=== PATIENT | male | born 1975 | race African-American/Black ===

== ENCOUNTER 2020-05-16 05:23 | Inpatient (IN) | payer MEDICARE, OTHER ==
[2020-05-16] VITALS (7 sets, daily range): BP systolic 157–199; BP diastolic 82–110
[~2020-05-16] VITALS: Ht 175.3 cm; Wt 67.6 kg
[2020-05-16 05:54] LABS: BASO # 0.1 x10^3/uL (0.0-0.2); BASO % 1 % (0-3); EOS # 0.1 x10^3/uL (0.0-0.7); EOS % 1 % (0-3); HEMATOCRIT 26.9 % (39.0-53.0); LYMPH # 0.9 x10^3/uL (1.0-4.8); LYMPH % 10 % (24-48); MEAN CORPUSCULAR HEMOGLOBIN 28 pg (25-35); MEAN CORPUSCULAR HGB CONC 34 g/dL (31-37); MEAN CORPUSCULAR VOLUME 83 fL (79-100); MONO # 0.7 x10^3/uL (0.0-1.1); MONO % 8 % (0-9); NEUT % 80 % (31-73); PLATELET COUNT 220 x10^3/uL (140-400); RED BLOOD COUNT 3.23 x10^6/uL (4.30-5.70); RED CELL DISTRIBUTION WIDTH 18.3 % (11.5-14.5); WHITE BLOOD COUNT 8.7 x10^3/uL (4.0-11.0)
--- NOTE | 2020-05-16 05:55 | PHYS DOC ---
Past Medical History Past Medical History: CHF, Renal Failure (MOHSEN DAO DO) Past Medical History: Renal Failure (GREG MARQUEZ MD) Past Surgical History Dialysis fistula (MOHSEN DAO DO) Smoking Status: Current Every Day Smoker (MOHSEN DAO DO) Drug Use: None (GREG MARQUEZ MD) General Adult EDM: Chief Complaint: SHORTNESS OF BREATH HPI: HPI: Patient is a 45-year-old male with end-stage renal disease on dialysis who has a Friday schedule. He states he missed his Friday dialysis because he did not have a ride. He has been progressively more short of breath with dyspnea on exertion since that time. He denies any fever chills or sweats. Has had no cough or congestion. He does describe orthopnea. He states he has had to be hospitalized for emergent dialysis in the past. He denies any chest pain. Patient had a negative COVID test several days ago [] (MOHSEN DAO DO) Review of Systems: Review of Systems: Constitutional: Denies fever or chills. [] Eyes: Denies change in visual acuity. [] HENT: Denies nasal congestion or sore throat. [] Respiratory: Denies cough or shortness of breath. [] Cardiovascular: Denies chest pain or edema. [] GI: Denies abdominal pain, nausea, vomiting, bloody stools or diarrhea. [] : Denies dysuria. [] Musculoskeletal: Denies back pain or joint pain. [] Integument: Denies rash. [] Neurologic: Denies headache, focal weakness or sensory changes. [] Endocrine: Denies polyuria or polydipsia. [] Lymphatic: Denies swollen glands. [] Psychiatric: Reports depression [] (MOHSEN DAO DO) Heart Score: Risk Factors: Risk Factors: DM, Current or recent (<one month) smoker, HTN, HLP, family history of CAD, obesity. Risk Scores: Score 0 - 3: 2.5% MACE over next 6 weeks - Discharge Home Score 4 - 6: 20.3% MACE over next 6 weeks - Admit for Clinical Observation Score 7 - 10: 72.7% MACE over next 6 weeks - Early Invasive Strategies (MOHSEN DAO DO) Allergies: Allergies: Allergies Coded Allergies Type Severity Reaction Last Updated Verified oxycodone Allergy Mild Itching 05/16/20 Yes (MOHSEN DAO DO) Physical Exam: PE: Constitutional: Well developed, well nourished, no acute distress, non-toxic appearance. [] HENT: Normocephalic, atraumatic, bilateral external ears normal, oropharynx moist, no oral exudates, nose normal. [] Eyes: PERRLA, EOMI, conjunctiva normal, no discharge. [] Neck: Normal range of motion, no tenderness, supple, no stridor. [] Cardiovascular:Heart rate regular rhythm, no murmur [] Lungs & Thorax: Bilateral breath sounds clear to auscultation [] Abdomen: Bowel sounds normal, soft, no tenderness, no masses, no pulsatile masses. [] Skin: Warm, dry, no erythema, no rash. [] Back: No tenderness, no CVA tenderness. [] Extremities: No tenderness, no cyanosis, no clubbing, ROM intact, no edema. [] Neurologic: Alert and oriented X 3, normal motor function, normal sensory function, no focal deficits noted. [] Psychologic: Affect normal, judgement normal, mood normal. [] (MOHSEN DAO DO) Current Patient Data: Labs: Laboratory Tests Test 05/16/20 05:42 White Blood Count 8.7 x10^3/uL Red Blood Count 3.23 x10^6/uL Hemoglobin 9.0 g/dL Hematocrit 26.9 % Mean Corpuscular Volume 83 fL Mean Corpuscular Hemoglobin 28 pg Mean Corpuscular Hemoglobin Concent 34 g/dL Red Cell Distribution Width 18.3 % Platelet Count 220 x10^3/uL Neutrophils (%) (Auto) 80 % Lymphocytes (%) (Auto) 10 % Monocytes (%) (Auto) 8 % Eosinophils (%) (Auto) 1 % Basophils (%) (Auto) 1 % Neutrophils # (Auto) 7.0 x10^3/uL Lymphocytes # (Auto) 0.9 x10^3/uL Monocytes # (Auto) 0.7 x10^3/uL Eosinophils # (Auto) 0.1 x10^3/uL Basophils # (Auto) 0.1 x10^3/uL Sodium Level 135 mmol/L Potassium Level 6.2 mmol/L Chloride Level 93 mmol/L Carbon Dioxide Level 29 mmol/L Anion Gap 13 Blood Urea Nitrogen 75 mg/dL Creatinine 16.7 mg/dL Estimated GFR (Cockcroft-Gault) 3.8 BUN/Creatinine Ratio 4 Glucose Level 138 mg/dL Calcium Level 8.5 mg/dL Magnesium Level 3.0 mg/dL Total Bilirubin 0.4 mg/dL Aspartate Amino Transf (AST/SGOT) 30 U/L Alanine Aminotransferase (ALT/SGPT) 27 U/L Alkaline Phosphatase 121 U/L Total Protein 7.9 g/dL Albumin 3.5 g/dL Albumin/Globulin Ratio 0.8 Vital Signs: Vital Signs Date Time Temp Pulse Resp B/P (MAP) Pulse Ox O2 Delivery O2 Flow Rate FiO2 05/16/20 05:56 98.3 76 20 177/88 (117) 99 Room Air 98.3 (GREG MARQUEZ MD) EKG: EKG: EKG: Normal sinus rhythm rate of [address]-T changes [] (MOHSEN DAO DO) Radiology/Procedures: Radiology/Procedures: [] (MOHSEN DAO DO) Radiology/Procedures: [facility] [address] [place] [address] IMAGING REPORT Signed PATIENT: IFEANYI ALMENDAREZ EACCOUNT: [id number] : 1975 LOCATION: [address] [place] [address] AGE: 45 SEX: M EXAM STATUS: ADM IN ORD. PHYSICIAN: MOHSEN DAO DO REASON: soa PROCEDURE: CHEST AP ONLY Chest AP portable at 0547: Reason for examination: Short of breath. The heart size is mildly enlarged. Mediastinum is unremarkable. Lung persaud are clear. No acute bony abnormalities are seen. Impression: Mild cardiomegaly. No acute cardiopulmonary disease. Electronically signed by: Karla Torres MD (05/16/2020 6:06 AM) [id number] DICTATED and SIGNED BY: KARLA TORRES MD DATE: 05/16/20605 (GREG MARQUEZ MD) Course & Med Decision Making: Course & Med Decision Making Pertinent Labs and Imaging studies reviewed. (See chart for details) [] (MOHSEN DAO DO) Course & Med Decision Making Patient is a dialysis patient who missed dialysis appointment and short of breath. Patient seen by Dr. Barahona and admitted. Was to follow-up on chest x-ray and labs. Patient has mild hyperkalemia. Calcium, insulin, D50 have been ordered. Chest x-ray shows no significant volume overload. Patient will be admitted to the floor. (GREG MARQUEZ MD) Dragon Disclaimer: Dragon Disclaimer: This electronic medical record was generated, in whole or in part, using a voice recognition dictation system. (MOHSEN DAO DO) Departure Departure Impression: Primary Impression: End stage renal failure on dialysis Additional Impressions: Shortness of breath on exertion Hyperkalemia Disposition: ADMITTED INPATIENT Admitting Physician: PASQUALE (MOHSEN DAO DO) Condition: STABLE Referrals: NO PCP (PCP) Justicifation of Admission Dx: Justifications for Admission: Justification of Admission Dx: Yes Chronic Renal Failure: Significant Resp Findings (MOHSEN DAO DO) Justification of Admission Dx: Yes Chronic Renal Failure: Electrolyte Abnormality (GREG MARQUEZ MD) MOHSEN DAO DO May 16, 2020 05:55 GREG MARQUEZ MD May 16, 2020 06:16
[2020-05-16] MEDS ORDERED: ONDANSETRON PF 4 MG/2 ML VIAL. IV PRN (06:00)
--- NOTE | 2020-05-16 06:09 | RAD ---
Chest AP portable at 0547: Reason for examination: Short of breath. The heart size is mildly enlarged. Mediastinum is unremarkable. Lung persaud are clear. No acute bony abnormalities are seen. Impression: Mild cardiomegaly. No acute cardiopulmonary disease. Electronically signed by: Karla Leigh MD (05/16/2020 6:06 AM) [id number]
[2020-05-16 06:14] LABS: ALBUMIN 3.5 g/dL (3.4-5.0); ALBUMIN/GLOBULIN RATIO 0.8 (1.0-1.7); CALCIUM 8.5 mg/dL (8.5-10.1); CREATININE 16.7 mg/dL (0.7-1.3); GFR 3.8; TOTAL BILIRUBIN 0.4 mg/dL (0.2-1.0); TOTAL PROTEIN 7.9 g/dL (6.4-8.2)
[2020-05-16 06:16] LABS: POTASSIUM 6.2 mmol/L (3.5-5.1)
[2020-05-16] MEDS ORDERED: CALCIUM GLUCONATE 1,000 MG in IV NORMAL SALINE 100ML 100 ML IV ONE (06:30)
[2020-05-16] MEDS ORDERED: INSULIN REGULAR 100 UNIT/ML 3ML VIAL. IV ONE (06:30)
[2020-05-16] MEDS ORDERED: DEXTROSE 50% 25 GM / 50ML DISP.SYRIN. IV ONE (06:30)
--- NOTE | 2020-05-16 06:39 | EKG ---
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
[2020-05-16] MEDS ORDERED: CALCIUM GLUCONATE 1,000 MG/10 ML VIAL. IVP ONE (07:00)
--- NOTE | 2020-05-16 08:00 | NUR ---
The patient, IFEANYI ALMENDAREZ, 45 y/o, M admitted by CORTEZ THOMAS III, DO, was given written information regarding hospital policies, unit procedures and contact persons. Patient stated he is short of breath with exertion and has some muscle pain. Patient stated that he missed dialysis Friday due to transportation problems and stated that he only feels this way because he needs dialysis. Patient appears to be very fatigued and trying to catch his breath. This RN asked if he has been in contact with anyone who is COVID positive or with symptoms. He said that a co worker was positive but they test everyone and he is negative. Valuables were checked and left at bedside with patient, then charted in EMR.
--- NOTE | 2020-05-16 08:23 | PDOC1 ---
History and Physical Date of Admission: Date of Admission DATE: 05/16/20 TIME: 08:14 Chief Complaint: Chief Complain: Shortness of breath History of Present Illness: HPI: 45-year-old male with end-stage renal disease on dialysis who has a Friday schedule. He states he missed his Friday dialysis because he did not have a ride. He has been progressively more short of breath with dyspnea on exertion since that time. He denies any fever chills or sweats. Has had no cough or congestion. He does describe orthopnea. He states he has had to be hospitalized for emergent dialysis in the past. He denies any chest pain. Patient had a negative COVID test several days ago Past Medical/Surgical History: PMH/PSH: Past Medical History: CHF, Renal Failure Past Surgical History Dialysis fistula Allergies: Allergies: Coded Allergies: oxycodone (Verified Allergy, Mild, Itching, 05/16/20) Family History: Family History: Reviewed and none reported Social History: Social History: Smoking Status: Current Every Day Smoker Drug Use: None Current Medications: Current Medications Current Medications Ondansetron HCl (Zofran) 4 mg PRN Q8HRS PRN IV NAUSEA/VOMITING; Start 05/16/20 at 06:00; Stop 05/17/20 at 05:59 Calcium Gluconate 1000 mg/Sodium Chloride 110 ml @ 220 mls/hr 1X ONCE IV Last administered on 05/16/20at 06:35; Start 05/16/20 at 06:30; Stop 05/16/20 at 06:47; Status DC Insulin Human Regular (HumuLIN R VIAL) 10 unit 1X ONCE IV Last administered on 05/16/20at 06:34; Start 05/16/20 at 06:30; Stop 05/16/20 at 06:31; Status DC Dextrose (Dextrose 50%-Water Syringe) 50 gm 1X ONCE IV Last administered on 05/16/20at 06:31; Start 05/16/20 at 06:30; Stop 05/16/20 at 06:31; Status DC Calcium Gluconate (Calcium Gluconate) 1,000 mg 1X ONCE IVP Last administered on 05/16/20at 07:08; Start 05/16/20 at 07:00; Stop 05/16/20 at 07:01; Status DC ROS: Review of Systems Review of System REVIEW OF SYSTEMS: GENERAL: Denies weakness SKIN: No bruising, hair changes or rashes. EYES: No blurred, double or loss of vision. NOSE AND THROAT: No history of nosebleeds, hoarseness or sore throat. HEART: No history of palpitations, chest pain or shortness of breath on exertion. LUNGS: Denies cough, hemoptysis, wheezing or shortness of breath. GASTROINTESTINAL: Denies changes in appetite, nausea, vomiting, diarrhea or constipation. GENITOURINARY: No history of frequency, urgency, hesitancy or nocturia. NEUROLOGIC: Denies history of numbness, tingling, or tremor. PSYCHIATRIC: No history of panic, anxiety or depression. ENDOCRINE: No history of heat or cold intolerance, polyuria or polydipsia. EXTREMITIES: Denies joint pain, pain on walking or stiffness. Physical Exam: Vital Signs: Vital Signs Date Time Temp Pulse Resp B/P (MAP) Pulse Ox O2 Delivery O2 Flow Rate FiO2 05/16/20 06:55 86 20 188/94 (125) 96 Room Air 05/16/20 05:56 98.3 98.3 Physcial Exam: GEN: No apparent distress. Alert and oriented HEENT: Normal cephalic, atraumatic, external auditory canals are patent EYES: Extraocular muscles are intact, pupil are equally round and reactive to light and accommodation MUSCULOSKELETAL: Well developed , well nourished, good range of motion ENDOCRINE: No thyromegaly was palpated LYMPHATICS: No cervical chain or axillary nodes were noted HEMATOPOIETIC: No bruising NECK: Supple, no JVD, no thyromegaly was noted LUNGS: Clear to auscultation in all lung persaud without rhonchi or wheezing HEART: RRR, S!, S2 present. Peripheral pulses intact, no obvious murmurs noted ABDOMEN: Soft, nontender. Positive bowel sounds, no organomegaly, normal bowel sounds EXTREMITIES: Without clubbing, cyanosis, or edema. Pedal pulses intact. Negative Homans sign NEUROLOGIC: Normal speech and tone. A&O x 3, moves all extremities, no obvious focal deficits PSYCHIATRIC: Normal affect, normal mood. Stable SKIN: No ulcerations or rashes, good skin turgor, no jaundice VASCULAR: Good capillary refill, neurovascular bundle appears to be intact Labs: Labs: Laboratory Tests Test 7/28/20 05:42 White Blood Count 8.7 x10^3/uL (4.0-11.0) Red Blood Count 3.23 x10^6/uL (4.30-5.70) Hemoglobin 9.0 g/dL (13.0-17.5) Hematocrit 26.9 % (39.0-53.0) Mean Corpuscular Volume 83 fL (79-100) Mean Corpuscular Hemoglobin 28 pg (25-35) Mean Corpuscular Hemoglobin Concent 34 g/dL (31-37) Red Cell Distribution Width 18.3 % (11.5-14.5) Platelet Count 220 x10^3/uL (140-400) Neutrophils (%) (Auto) 80 % (31-73) Lymphocytes (%) (Auto) 10 % (24-48) Monocytes (%) (Auto) 8 % (0-9) Eosinophils (%) (Auto) 1 % (0-3) Basophils (%) (Auto) 1 % (0-3) Neutrophils # (Auto) 7.0 x10^3/uL (1.8-7.7) Lymphocytes # (Auto) 0.9 x10^3/uL (1.0-4.8) Monocytes # (Auto) 0.7 x10^3/uL (0.0-1.1) Eosinophils # (Auto) 0.1 x10^3/uL (0.0-0.7) Basophils # (Auto) 0.1 x10^3/uL (0.0-0.2) Sodium Level 135 mmol/L (136-145) Potassium Level 6.2 mmol/L (3.5-5.1) Chloride Level 93 mmol/L (98-107) Carbon Dioxide Level 29 mmol/L (21-32) Anion Gap 13 (6-14) Blood Urea Nitrogen 75 mg/dL (8-26) Creatinine 16.7 mg/dL (0.7-1.3) Estimated GFR (Cockcroft-Gault) 3.8 BUN/Creatinine Ratio 4 (6-20) Glucose Level 138 mg/dL (70-99) Calcium Level 8.5 mg/dL (8.5-10.1) Magnesium Level 3.0 mg/dL (1.8-2.4) Total Bilirubin 0.4 mg/dL (0.2-1.0) Aspartate Amino Transf (AST/SGOT) 30 U/L (15-37) Alanine Aminotransferase (ALT/SGPT) 27 U/L (16-63) Alkaline Phosphatase 121 U/L (46-116) IN-Lfp-D-Type Natriuretic Peptide > 44208 pg/mL (0-124) Total Protein 7.9 g/dL (6.4-8.2) Albumin 3.5 g/dL (3.4-5.0) Albumin/Globulin Ratio 0.8 (1.0-1.7) Laboratory Tests Test 05/16/20 05:42 White Blood Count 8.7 x10^3/uL (4.0-11.0) Red Blood Count 3.23 x10^6/uL (4.30-5.70) Hemoglobin 9.0 g/dL (13.0-17.5) Hematocrit 26.9 % (39.0-53.0) Mean Corpuscular Volume 83 fL (79-100) Mean Corpuscular Hemoglobin 28 pg (25-35) Mean Corpuscular Hemoglobin Concent 34 g/dL (31-37) Red Cell Distribution Width 18.3 % (11.5-14.5) Platelet Count 220 x10^3/uL (140-400) Neutrophils (%) (Auto) 80 % (31-73) Lymphocytes (%) (Auto) 10 % (24-48) Monocytes (%) (Auto) 8 % (0-9) Eosinophils (%) (Auto) 1 % (0-3) Basophils (%) (Auto) 1 % (0-3) Neutrophils # (Auto) 7.0 x10^3/uL (1.8-7.7) Lymphocytes # (Auto) 0.9 x10^3/uL (1.0-4.8) Monocytes # (Auto) 0.7 x10^3/uL (0.0-1.1) Eosinophils # (Auto) 0.1 x10^3/uL (0.0-0.7) Basophils # (Auto) 0.1 x10^3/uL (0.0-0.2) Sodium Level 135 mmol/L (136-145) Potassium Level 6.2 mmol/L (3.5-5.1) Chloride Level 93 mmol/L (98-107) Carbon Dioxide Level 29 mmol/L (21-32) Anion Gap 13 (6-14) Blood Urea Nitrogen 75 mg/dL (8-26) Creatinine 16.7 mg/dL (0.7-1.3) Estimated GFR (Cockcroft-Gault) 3.8 BUN/Creatinine Ratio 4 (6-20) Glucose Level 138 mg/dL (70-99) Calcium Level 8.5 mg/dL (8.5-10.1) Magnesium Level 3.0 mg/dL (1.8-2.4) Total Bilirubin 0.4 mg/dL (0.2-1.0) Aspartate Amino Transf (AST/SGOT) 30 U/L (15-37) Alanine Aminotransferase (ALT/SGPT) 27 U/L (16-63) Alkaline Phosphatase 121 U/L (46-116) EO-Smw-N-Type Natriuretic Peptide > 27357 pg/mL (0-124) Total Protein 7.9 g/dL (6.4-8.2) Albumin 3.5 g/dL (3.4-5.0) Albumin/Globulin Ratio 0.8 (1.0-1.7) Images: Images All images and reports were reviewed by va Chest AP portable at 0547: Reason for examination: Short of breath. The heart size is mildly enlarged. Mediastinum is unremarkable. Lung persaud are clear. No acute bony abnormalities are seen. Impression: Mild cardiomegaly. No acute cardiopulmonary disease. Assessment/Plan Assessment/Plan Acute respiratory distress secondary to volume overload needing emergent dialysis Acute hyperkalemia with no apparent EKG changes History of chronic CHF ESRD with TTS schedule Anemia secondary to CKD Admit to medicine Pending HD Appreciate nephrology recommendations Strict I's and O's Continue telemetry monitoring Daily chemistry labs Considered 30 mg Kayexalate Calcium gluconate IV for cardioprotection Heparin for DVT prophylaxis Renal diet Full code Discussed with RN and SW Dispo pending nephrology consultation and hemodialysis Justicifation of Admission Dx: Justifications for Admission: Justification of Admission Dx: Yes Chronic Renal Failure: Electrolyte Abnormality HERLINDA GARAY MD May 16, 2020 08:23
[2020-05-16] MEDS ORDERED: diphenhydrAMINE 50 MG/ML VIAL IV PRN ×2 (09:00)
[2020-05-16] MEDS ORDERED: IV NORMAL SALINE 1000ML BAG 1,000 ML IV PRN ×2 (09:00)
--- NOTE | 2020-05-16 09:30 | NUR ---
Patient off unit with transportation to dialysis at this time
[2020-05-16] MEDS ORDERED: DIALYSIS PATIENT. MC PRN ×2 (10:15)
[2020-05-16] MEDS ORDERED: SEVE800T9 PO (10:56)
[2020-05-16] MEDS ORDERED: CARV25TA2 PO (10:56)
[2020-05-16] MEDS ORDERED: FOLI0.8T21 PO (10:56)
[2020-05-16] MEDS ORDERED: LISI-334 PO (10:56)
[2020-05-16] MEDS ORDERED: AMLO10TA8 PO (10:56)
[2020-05-16] MEDS ORDERED: HYDR-2869 PO (10:56)
[2020-05-16] MEDS ORDERED: ALLO100T PO (10:56)
--- NOTE | 2020-05-16 12:15 | PDOC2 ---
CONSULT Date of Consult Date of Consult DATE: 05/16/20 TIME: 12:09 Reason for Consult Reason for Consult: ESRD AND SOB Referring Physician Referring Physician: MARTHA Identification/Chief Complaint Chief Complaint SOB Source Source: Chart review, Patient History of Present Illness Reason for Visit: THIS IS A 45 YR OLD PT WITH ESRD. HAS HD ON TTS. MISSED HIS LAST HD ON SAT DUE TO LACK OF TRANSPORTATION. HAS HX OF NON COMPLIANCE. ADMITTED WITH SOB. LABS ARE C/W ESRD Past Medical History Cardiovascular: HTN GI: Constipation Heme/Onc: Anemia NOS Renal/: Chronic renal failure Endocrine: Hyperparathyroidism Past Surgical History Past Surgical History AV ACCESS Family History Family History: Hypertension Social History No ALCOHOL: none Drugs: None Lives: with Family Current Problem List Problem List Problems Medical Problems: (1) End stage renal failure on dialysis Status: Acute (2) Hyperkalemia Status: Acute (3) Shortness of breath on exertion Status: Acute Current Medications Current Medications Current Medications Ondansetron HCl (Zofran) 4 mg PRN Q8HRS PRN IV NAUSEA/VOMITING; Start 05/16/20 at 06:00; Stop 05/17/20 at 05:59 Calcium Gluconate 1000 mg/Sodium Chloride 110 ml @ 220 mls/hr 1X ONCE IV Last administered on 05/16/20at 06:35; Start 05/16/20 at 06:30; Stop 05/16/20 at 06:47; Status DC Insulin Human Regular (HumuLIN R VIAL) 10 unit 1X ONCE IV Last administered on 05/16/20at 06:34; Start 05/16/20 at 06:30; Stop 05/16/20 at 06:31; Status DC Dextrose (Dextrose 50%-Water Syringe) 50 gm 1X ONCE IV Last administered on 05/16/20at 06:31; Start 05/16/20 at 06:30; Stop 05/16/20 at 06:31; Status DC Calcium Gluconate (Calcium Gluconate) 1,000 mg 1X ONCE IVP Last administered on 05/16/20at 07:08; Start 05/16/20 at 07:00; Stop 05/16/20 at 07:01; Status DC Sodium Chloride 1,000 ml @ 1,000 mls/hr Q1H PRN IV hypotension; Start 05/16/20 at 09:00; Stop 05/16/20 at 14:59 Diphenhydramine HCl (Benadryl) 25 mg 1X PRN PRN IV ITCHING; Start 05/16/20 at 09:00; Stop 05/17/20 at 08:59 Diphenhydramine HCl (Benadryl) 25 mg 1X PRN PRN IV ITCHING; Start 05/16/20 at 09:00; Stop 05/17/20 at 08:59 Sodium Chloride 1,000 ml @ 400 mls/hr Q2H30M PRN IV PATENCY; Start 05/16/20 at 09:00; Stop 05/16/20 at 20:59 Info (PHARMACY MONITORING -- do not chart) 1 each PRN DAILY PRN MC SEE COMMENTS; Start 05/16/20 at 10:15 Info (PHARMACY MONITORING -- do not chart) 1 each PRN DAILY PRN MC SEE COMMENTS; Start 05/16/20 at 10:15 Active Scripts Active Reported Renvela (Sevelamer Carbonate) 800 Mg Tablet 3,200 Mg PO TIDWMEALS Allopurinol 100 Mg Tablet 100 Mg PO DAILY Hydralazine Hcl 50 Mg Tablet 50 Mg PO BID Lisinopril 20 Mg Tablet 20 Mg PO BID Amlodipine Besylate 10 Mg Tablet 10 Mg PO DAILY U[place]ia-Amanda Tablet (Folic Acid/Vitamin B Comp W-C) 0.8 Mg Tablet 1 Tab PO DAILY 30 Days Carvedilol 25 Mg Tablet 25 Mg PO BIDWMEALS Allergies Allergies: Coded Allergies: oxycodone (Verified Allergy, Mild, Itching, 05/16/20) ROS General: YES: Fatigue, Malaise, Appetite Eyes: Yes Decreased vision Respiratory: YES: Cough Cardiovascular: yes Chest Pain Gastrointestinal: Yes Constipation Genitourinary: YES Other (ANURIA) Musculoskeletal: Yes Muscular Weakness Neurological: Yes Weakness Skin: Yes Dry Skin Physical Exam General: Alert, Oriented X3, Cooperative, No acute distress HEENT: Atraumatic, PERRLA Lungs: Clear to auscultation, Normal air movement Heart: Regular rate Abdomen: Normal bowel sounds, Soft, No tenderness Extremities: No clubbing Skin: No breakdown Neuro: Normal speech, Sensation intact Psych/Mental Status: Mental status NL, Mood NL MUSCULOSKELETAL: No joint tenderness, No deformity, No swelling Vitals VITALS Vital Signs Date Time Temp Pulse Resp B/P (MAP) Pulse Ox O2 Delivery O2 Flow Rate FiO2 05/16/20 09:10 98.0 82 18 195/96 (129) 96 Room Air 98.0 Labs Labs Laboratory Tests Test 05/16/20 05:42 White Blood Count 8.7 x10^3/uL (4.0-11.0) Red Blood Count 3.23 x10^6/uL (4.30-5.70) Hemoglobin 9.0 g/dL (13.0-17.5) Hematocrit 26.9 % (39.0-53.0) Mean Corpuscular Volume 83 fL (79-100) Mean Corpuscular Hemoglobin 28 pg (25-35) Mean Corpuscular Hemoglobin Concent 34 g/dL (31-37) Red Cell Distribution Width 18.3 % (11.5-14.5) Platelet Count 220 x10^3/uL (140-400) Neutrophils (%) (Auto) 80 % (31-73) Lymphocytes (%) (Auto) 10 % (24-48) Monocytes (%) (Auto) 8 % (0-9) Eosinophils (%) (Auto) 1 % (0-3) Basophils (%) (Auto) 1 % (0-3) Neutrophils # (Auto) 7.0 x10^3/uL (1.8-7.7) Lymphocytes # (Auto) 0.9 x10^3/uL (1.0-4.8) Monocytes # (Auto) 0.7 x10^3/uL (0.0-1.1) Eosinophils # (Auto) 0.1 x10^3/uL (0.0-0.7) Basophils # (Auto) 0.1 x10^3/uL (0.0-0.2) Sodium Level 135 mmol/L (136-145) Potassium Level 6.2 mmol/L (3.5-5.1) Chloride Level 93 mmol/L (98-107) Carbon Dioxide Level 29 mmol/L (21-32) Anion Gap 13 (6-14) Blood Urea Nitrogen 75 mg/dL (8-26) Creatinine 16.7 mg/dL (0.7-1.3) Estimated GFR (Cockcroft-Gault) 3.8 BUN/Creatinine Ratio 4 (6-20) Glucose Level 138 mg/dL (70-99) Calcium Level 8.5 mg/dL (8.5-10.1) Magnesium Level 3.0 mg/dL (1.8-2.4) Total Bilirubin 0.4 mg/dL (0.2-1.0) Aspartate Amino Transf (AST/SGOT) 30 U/L (15-37) Alanine Aminotransferase (ALT/SGPT) 27 U/L (16-63) Alkaline Phosphatase 121 U/L (46-116) XZ-Ibr-I-Type Natriuretic Peptide > 14876 pg/mL (0-124) Total Protein 7.9 g/dL (6.4-8.2) Albumin 3.5 g/dL (3.4-5.0) Albumin/Globulin Ratio 0.8 (1.0-1.7) Laboratory Tests Test 05/16/20 05:42 White Blood Count 8.7 x10^3/uL (4.0-11.0) Red Blood Count 3.23 x10^6/uL (4.30-5.70) Hemoglobin 9.0 g/dL (13.0-17.5) Hematocrit 26.9 % (39.0-53.0) Mean Corpuscular Volume 83 fL (79-100) Mean Corpuscular Hemoglobin 28 pg (25-35) Mean Corpuscular Hemoglobin Concent 34 g/dL (31-37) Red Cell Distribution Width 18.3 % (11.5-14.5) Platelet Count 220 x10^3/uL (140-400) Neutrophils (%) (Auto) 80 % (31-73) Lymphocytes (%) (Auto) 10 % (24-48) Monocytes (%) (Auto) 8 % (0-9) Eosinophils (%) (Auto) 1 % (0-3) Basophils (%) (Auto) 1 % (0-3) Neutrophils # (Auto) 7.0 x10^3/uL (1.8-7.7) Lymphocytes # (Auto) 0.9 x10^3/uL (1.0-4.8) Monocytes # (Auto) 0.7 x10^3/uL (0.0-1.1) Eosinophils # (Auto) 0.1 x10^3/uL (0.0-0.7) Basophils # (Auto) 0.1 x10^3/uL (0.0-0.2) Sodium Level 135 mmol/L (136-145) Potassium Level 6.2 mmol/L (3.5-5.1) Chloride Level 93 mmol/L (98-107) Carbon Dioxide Level 29 mmol/L (21-32) Anion Gap 13 (6-14) Blood Urea Nitrogen 75 mg/dL (8-26) Creatinine 16.7 mg/dL (0.7-1.3) Estimated GFR (Cockcroft-Gault) 3.8 BUN/Creatinine Ratio 4 (6-20) Glucose Level 138 mg/dL (70-99) Calcium Level 8.5 mg/dL (8.5-10.1) Magnesium Level 3.0 mg/dL (1.8-2.4) Total Bilirubin 0.4 mg/dL (0.2-1.0) Aspartate Amino Transf (AST/SGOT) 30 U/L (15-37) Alanine Aminotransferase (ALT/SGPT) 27 U/L (16-63) Alkaline Phosphatase 121 U/L (46-116) KY-Gnt-W-Type Natriuretic Peptide > 24235 pg/mL (0-124) Total Protein 7.9 g/dL (6.4-8.2) Albumin 3.5 g/dL (3.4-5.0) Albumin/Globulin Ratio 0.8 (1.0-1.7) Assessment/Plan Assessment/Plan IMP ACUTE ON CHRONIC D CHF NON COMPLIANCE ANEMIA HTN PLAN HD TODAY UF TO DW JULITO WHEN BP IS BETTER CLONIDINE WHILE ON HD RESUME HOME NAV BROUSSARD MD May 16, 2020 12:14
--- NOTE | 2020-05-16 12:18 | NUR ---
SS following for discharge planning. SS reviewed pt chart and discussed with pt RN. Pt is from home and is currently on room air. Pt has outpatient dialysis at [facility], ; fax [phone], Friday, , and Friday at 0615. SS contacted [facility] and was notified that COIVD19 test is not required. SS will continue to follow for discharge planning.
[2020-05-16] MEDS: SEVELAMER CARBONATE 800 MG TABLET. PO SCH ×2 (12:30→17:05)
[2020-05-16] MEDS: amLODIPine BESYLATE 10 MG TABLET PO SCH (12:41)
[2020-05-16] MEDS: LISINOPRIL 20 MG TABLET PO SCH ×2 (12:41→21:54)
[2020-05-16] MEDS ORDERED: hydrALAZINE 20 MG/ML VIAL. IVP PRN (16:30)
[2020-05-16] MEDS: FOLIC/VIT B COMP W-C (RENAL) TABLET. PO SCH (17:05)
[2020-05-16] MEDS: ALLOPURINOL 100 MG TABLET. PO SCH (17:05)
[2020-05-16] MEDS: CARVEDILOL 12.5 MG TABLET. PO SCH (17:07)
[2020-05-17 03:49] VITALS: BP 160/84
[2020-05-17 05:33] LABS: BASO % 1 % (0-3); EOS # 0.1 x10^3/uL (0.0-0.7); EOS % 1 % (0-3); HEMATOCRIT 27.3 % (39.0-53.0); HEMOGLOBIN 8.9 g/dL (13.0-17.5); LYMPH % 16 % (24-48); MEAN CORPUSCULAR HEMOGLOBIN 27 pg (25-35); MEAN CORPUSCULAR HGB CONC 33 g/dL (31-37); MEAN CORPUSCULAR VOLUME 84 fL (79-100); MONO # 0.6 x10^3/uL (0.0-1.1); MONO % 11 % (0-9); NEUT # 4.3 x10^3/uL (1.8-7.7); NEUT % 71 % (31-73); PLATELET COUNT 197 x10^3/uL (140-400); RED BLOOD COUNT 3.26 x10^6/uL (4.30-5.70); RED CELL DISTRIBUTION WIDTH 17.9 % (11.5-14.5)
[2020-05-17 05:42] LABS: ALBUMIN 3.1 g/dL (3.4-5.0); ALBUMIN/GLOBULIN RATIO 0.7 (1.0-1.7); CALCIUM 8.8 mg/dL (8.5-10.1); CREATININE 9.6 mg/dL (0.7-1.3); GFR 7.2; POTASSIUM 4.6 mmol/L (3.5-5.1); TOTAL BILIRUBIN 0.5 mg/dL (0.2-1.0); TOTAL PROTEIN 7.5 g/dL (6.4-8.2)
[2020-05-17 07:00] VITALS: BP 180/94
[2020-05-17] MEDS: LISINOPRIL 20 MG TABLET PO SCH (09:24)
[2020-05-17] MEDS: ALLOPURINOL 100 MG TABLET. PO SCH (09:24)
[2020-05-17] MEDS: FOLIC/VIT B COMP W-C (RENAL) TABLET. PO SCH (09:24)
[2020-05-17] MEDS: SEVELAMER CARBONATE 800 MG TABLET. PO SCH ×2 (09:24→12:25)
[2020-05-17] MEDS: CARVEDILOL 12.5 MG TABLET. PO SCH (09:25)
[2020-05-17] MEDS: amLODIPine BESYLATE 10 MG TABLET PO SCH (09:25)
--- NOTE | 2020-05-17 10:07 | PDOC ---
Renal-Progress Notes Subjective Notes Notes LESS SOB History of Present Illness Hx of present illness STABLE Vitals Vitals Vital Signs Date Time Temp Pulse Resp B/P (MAP) Pulse Ox O2 Delivery O2 Flow Rate FiO2 05/17/20 09:25 80 05/17/20 09:25 180/94 05/17/20 07:00 98.5 16 97 Room Air 98.5 Weight Weight [ ] I.O. Intake and Output Intake and Output 05/17/20 07:00 Intake Total 620 ml Output Total 0 ml Balance 620 ml Intake Oral 620 ml Output Urine Total 0 ml # Bowel Movements 1 Labs Labs Laboratory Tests Test 05/17/20 04:35 White Blood Count 6.0 x10^3/uL (4.0-11.0) Red Blood Count 3.26 x10^6/uL (4.30-5.70) Hemoglobin 8.9 g/dL (13.0-17.5) Hematocrit 27.3 % (39.0-53.0) Mean Corpuscular Volume 84 fL (79-100) Mean Corpuscular Hemoglobin 27 pg (25-35) Mean Corpuscular Hemoglobin Concent 33 g/dL (31-37) Red Cell Distribution Width 17.9 % (11.5-14.5) Platelet Count 197 x10^3/uL (140-400) Neutrophils (%) (Auto) 71 % (31-73) Lymphocytes (%) (Auto) 16 % (24-48) Monocytes (%) (Auto) 11 % (0-9) Eosinophils (%) (Auto) 1 % (0-3) Basophils (%) (Auto) 1 % (0-3) Neutrophils # (Auto) 4.3 x10^3/uL (1.8-7.7) Lymphocytes # (Auto) 1.0 x10^3/uL (1.0-4.8) Monocytes # (Auto) 0.6 x10^3/uL (0.0-1.1) Eosinophils # (Auto) 0.1 x10^3/uL (0.0-0.7) Basophils # (Auto) 0.0 x10^3/uL (0.0-0.2) Sodium Level 135 mmol/L (136-145) Potassium Level 4.6 mmol/L (3.5-5.1) Chloride Level 96 mmol/L (98-107) Carbon Dioxide Level 31 mmol/L (21-32) Anion Gap 8 (6-14) Blood Urea Nitrogen 31 mg/dL (8-26) Creatinine 9.6 mg/dL (0.7-1.3) Estimated GFR (Cockcroft-Gault) 7.2 BUN/Creatinine Ratio 3 (6-20) Glucose Level 120 mg/dL (70-99) Calcium Level 8.8 mg/dL (8.5-10.1) Total Bilirubin 0.5 mg/dL (0.2-1.0) Aspartate Amino Transf (AST/SGOT) 18 U/L (15-37) Alanine Aminotransferase (ALT/SGPT) 19 U/L (16-63) Alkaline Phosphatase 121 U/L (46-116) Total Protein 7.5 g/dL (6.4-8.2) Albumin 3.1 g/dL (3.4-5.0) Albumin/Globulin Ratio 0.7 (1.0-1.7) Review of Systems Constitutional: yes: alert, oriented Ears/Nose/Throat: Yes: no symptom reported Eyes: Yes: no symptom reported Pulmonary: Yes dyspnea Cardiovascular: Yes no symptom reported Gastrointestional: Yes: no symptom reported Genitourinary: Yes: no symptom reported Musculoskeletal: Yes: no symptom reported Skin: Yes no symptom reported Psychiatric/Neurological: Yes: no symptom reported Physical Exam General Appearance: no apparent distress Skin: warm Respiratory: decreased breath sounds Heart: S1S2 Abdomen: bowel sounds present Genitourinary: bladder flat Extremities: pulses present Neurology: alert, oriented Assessment Assessment IMP ACUTE ON CHRONIC D CHF NON COMPLIANCE ANEMIA HTN-LABILE PLAN HD TTS JULITO WHEN BP IS BETTER RESUMED HOME NAV BROUSSARD MD May 17, 2020 10:07
[2020-05-17 11:00] VITALS: BP 167/86
--- NOTE | 2020-05-17 11:17 | NUR ---
SS following for discharge planning. SS reviewed pt chart and discussed with pt RN. Pt is currently on room air. Discharge plan is to home when ready. Possible discharge to home today. Per RN, pt will need transportation. SS will continue to follow for discharge planning.
--- NOTE | 2020-05-17 12:42 | DISCH ---
DISCHARGE INSTRUCTIONS Condition on Discharge Condition on Discharge: Stable Activity After Discharge Activity Instructions for Disc: No restrictions Diet after Discharge Diet after Discharge: Renal Dialysis Contacting the [facility] after DC Call your doctor for: If your condition worsens Follow-Up Follow up with: PCP within 1 week of discharge Follow Up With: Nephrology to continue with her HD sessions HERLINDA GARAY MD May 17, 2020 12:42
--- NOTE | 2020-05-17 13:11 | NUR ---
SS following up with discharge planning. Discharge order on the chart for home with self care. [facility] transport, [id number], to transport pt to home at 1400. Pt's RN notified.
--- NOTE | 2020-05-17 14:24 | NUR ---
Discharge Note: IFEANYI ALMENDAREZ [address] Discharge instructions and discharge home medications reviewed with Patient and a copy given. All questions have been answered and understanding verbalized. The following instructions and handouts were given: medication and follow up instructions Discontinued lines and drains: peripheral IV discontinued, dressing clean, dry and intact. Patient discharged to home with transportation via ambulation
--- NOTE | 2020-05-17 15:04 | PDOC3 ---
[facility]-Discharge Summary Date of Admission: Date of Admission: May 16, 2020 Date of Discharge: Date of Discharge: May 17, 2020 Admission Diagnosis: Admitting Diagnosis: Acute respiratory distress secondary to volume overload needing emergent dialysis Acute hyperkalemia with no apparent EKG changes History of chronic CHF ESRD with TTS schedule Anemia secondary to CKD Discharge Diagnosis: Discharge Diagnosis: Acute respiratory distress secondary to volume overload needing emergent dialys is Acute hyperkalemia with no apparent EKG changes History of chronic CHF ESRD with TTS schedule Anemia secondary to CKD Consults: Consults: Nephrology Procedures: Procedures: Hemodialysis Hospital Course: Hospital Course: 45-year-old male with end-stage renal disease on dialysis who has a Friday schedule. He states he missed his Friday dialysis because he did not have a ride. He has been progressively more short of breath with dyspnea on exertion since that time. He denies any fever chills or sweats. Has had no cough or congestion. He does describe orthopnea. He states he has had to be hospitalized for emergent dialysis in the past. He denies any chest pain. Patient had a negative COVID test several days ago Patient was admitted for emergent dialysis. Patient tolerated dialysis session well. Patient was restarted on his home medication and he was tolerating diet and ambulating without assistance. Patient's respiratory status improved. The rest of the hospital course was uneventful Disposition: Disposition/Orders: D/C to Home Activity: Activity: Resume previous activity Diet: Diet: Renal Medications: Home Meds Reported Medications Sevelamer Carbonate (RENVELA) 800 Mg Tablet, 3200 MG PO TIDWMEALS for , TAB 05/16/20 Allopurinol (ALLOPURINOL) 100 Mg Tablet, 100 MG PO DAILY for , TAB 05/16/20 Hydralazine Hcl (HYDRALAZINE HCL) 50 Mg Tablet, 50 MG PO BID for , #180 TAB 3 Refills 05/16/20 Lisinopril (LISINOPRIL) 20 Mg Tablet, 20 MG PO BID for FOR HYPERTENSION, #30 TAB 0 Refills 05/16/20 Amlodipine Besylate (AMLODIPINE BESYLATE) 10 Mg Tablet, 10 MG PO DAILY for , TAB 05/16/20 Folic Acid/Vitamin B Comp W-C (SIERRA-YOLANDA TABLET) 0.8 Mg Tablet, 1 TAB PO DAILY for for 30 Days, #30 TAB 0 Refills 7/28/20 Carvedilol (CARVEDILOL) 25 Mg Tablet, 25 MG PO BIDWMEALS for CARDIAC, TAB 05/16/20 Scheduled Allopurinol (Allopurinol), 100 MG PO DAILY, (Reported) Amlodipine Besylate (Amlodipine Besylate), 10 MG PO DAILY, (Reported) Carvedilol (Carvedilol), 25 MG PO BIDWMEALS, (Reported) Folic Acid/Vitamin B Comp W-C (Sierra-Yolanda Tablet), 1 TAB PO DAILY, (Reported) Hydralazine Hcl (Hydralazine Hcl), 50 MG PO BID, (Reported) Lisinopril (Lisinopril), 20 MG PO BID, (Reported) Sevelamer Carbonate (Renvela), 3,200 MG PO TIDWMEALS, (Reported) Total Time: Total Time: Total time spent was 20 minutes in preparing scripts, discharge planning with SWI and RN and preparing this discharge summary Justicifation of Admission Dx: Justifications for Admission: Justification of Admission Dx: Yes Chronic Renal Failure: Electrolyte Abnormality HERLINDA GARAY MD May 17, 2020 15:04
== END 2020-05-17 14:26 | disposition home or self-care (01) | DRG 291 ==
LOC: ER 05:23 → OBSVTOIN 05:44 → 2 SOUTH 05:44
PROVIDERS: ADMIT Internal Medicine; ATTEND Internal Medicine
PROC: 5A1D70Z Performance of Urinary Filtration, Intermittent, Less than 6 Hours Per Day (ICD-10-PCS; principal; 2020-05-16)
DX: I13.2 Hypertensive heart and chronic kidney disease with heart failure and with stage 5 chronic kidney disease, or end stage renal disease (principal); I50.33 Acute on chronic diastolic (congestive) heart failure; N18.6 End stage renal disease; E87.5 Hyperkalemia; E87.70 Fluid overload, unspecified; D63.1 Anemia in chronic kidney disease; F17.200 Nicotine dependence, unspecified, uncomplicated; Z82.49 Family history of ischemic heart disease and other diseases of the circulatory system; Z91.19 Patient's noncompliance with other medical treatment and regimen; Z99.2 Dependence on renal dialysis; E21.3 Hyperparathyroidism, unspecified; Z88.8 Allergy status to other drugs, medicaments and biological substances; Z79.899 Other long term (current) drug therapy
CPT/HCPCS: 36415; 71045; 80053; 83735; 83880; 85025; 93005; 96365; 96375; 99285; J0610; J1815; G0378

== ENCOUNTER → 2021-01-04 | Outpatient (CLI) | payer MEDICARE, OTHER ==
[~2021-01-04] MED LIST: ALLO100T PO; AMLO-187 PO; CARV25TA2 PO; FOLI0.8T21 PO; HYDR-2869 PO; LISI20TA18 PO; SEVE800T9 PO
--- NOTE | 2021-01-04 13:26 | KCIC ---
EXAM: Thyroid Ultrasound INDICATION: Reason: SECONDARY HYPERPARATHYROIDISM OF RENAL ORIGIN;END STAGE RENAL DS / Spl. Instruct ions: / History: TECHNIQUE: Real-time ultrasound of the thyroid was performed with permanent freeze-frame documentatio n. COMPARISON: None. FINDINGS: THYROID: Thyroid gland is normal and homogeneous echogenicity. Right Lobe: 5.3 x 1.9 x 2.0 cm. Left Lobe: 5.0 x 2.0 x 1.6 cm. Isthmus: 0.3 cm. Nodule #1. Maximum size: 1.2 cm; Other 2 dimensions 0.9 x 0.8 cm. Location: Right superior pole. This is almost completely solid (2), hypoechoic (2), wider than tall (0), smooth margined (0), and has no comet tail artifacts (0). ACR TI-RADS risk category: TR4 (4-6 points): FNA if 1.5 cm, follow-up if 1-1.4 cm in 1, 2, 3, and 5 y ears. Significant change in size (>= 20% in two dimensions and minimal increase of 2 mm): No. Change in features: No. Change in ACR TI-RADS risk category: No. OTHER: No cervical adenopathy is apparent. There is a circumscribed 1.0 x 1.2 x 1.3 cm nodule posteri or to the inferior left thyroid lobe. IMPRESSION: 1. Possible left parathyroid adenoma. Suggest a head and neck surgical consultation and consider para thyroid scan in further evaluation. Electronically signed by: Ruthie Lamas MD (01/04/2021 1:23 PM) [id number]
== END ==
LOC: KCIC US 09:52
PROVIDERS: ATTEND Internal Medicine Nephrology
DX: N18.6 End stage renal disease (principal); N25.81 Secondary hyperparathyroidism of renal origin
CPT/HCPCS: 76536

== ENCOUNTER → 2021-02-16 | Outpatient (CLI) | payer MEDICARE, OTHER ==
--- NOTE | 2021-02-16 16:32 | RAD ---
EXAM: Nuclear parathyroid scan. HISTORY: Hyperparathyroidism. TECHNIQUE: Scintigraphic images of the neck were obtained following the intravenous administration of technetium 99m Cardiolite. COMPARISON: Sonogram performed 01/04/2021. FINDINGS: There is asymmetric increased radiotracer activity along the inferior aspect of the left th yroid lobe which persists on delayed images and corresponds with the location of a hypoechoic nodule demonstrated on a sonogram performed 01/04/2021. IMPRESSION: Mild persistent asymmetric radiotracer activity along the inferior aspect of the left thy roid lobe, corresponding with location of a hypoechoic nodule demonstrated on a sonogram performed . This can be seen with a hyperfunctioning parathyroid adenoma. Electronically signed by: Yamini Moran MD (02/16/2021 4:30 PM) [id number]
== END ==
LOC: NM 08:48
PROVIDERS: ATTEND Surgery
DX: E21.3 Hyperparathyroidism, unspecified (principal)
CPT/HCPCS: 78070; A9500

== ENCOUNTER 2021-12-08 07:13 | Observation (INO) | payer MEDICARE, OTHER ==
[~2021-12-08] VITALS: Ht 175.3 cm; Wt 60.4 kg
[2021-12-08] MEDS ORDERED: ASPIRIN CHEWABLE 81 MG TABLET. PO ONE (07:30)
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
[2021-12-08] MEDS ORDERED: ONDANSETRON PF 4 MG/2 ML VIAL. IVP ONE (07:45)
[2021-12-08 08:03] LABS: BASO # 0.1 x10^3/uL (0.0-0.2); BASO % 1 % (0-3); EOS # 0.1 x10^3/uL (0.0-0.7); EOS % 1 % (0-3); HEMATOCRIT 29.5 % (39.0-53.0); HEMOGLOBIN 9.1 g/dL (13.0-17.5); LYMPH # 0.7 x10^3/uL (1.0-4.8); LYMPH % 9 % (24-48); MEAN CORPUSCULAR HEMOGLOBIN 28 pg (25-35); MEAN CORPUSCULAR HGB CONC 31 g/dL (31-37); MEAN CORPUSCULAR VOLUME 91 fL (79-100); MONO # 0.5 x10^3/uL (0.0-1.1); MONO % 7 % (0-9); NEUT % 82 % (31-73); PLATELET COUNT 204 x10^3/uL (140-400); RED BLOOD COUNT 3.26 x10^6/uL (4.30-5.70); RED CELL DISTRIBUTION WIDTH 19.5 % (11.5-14.5); WHITE BLOOD COUNT 7.4 x10^3/uL (4.0-11.0)
--- NOTE | 2021-12-08 08:14 | RAD ---
Chest AP portable at 0736: Reason for examination: ESRD, hypoxia. Comparison is made to previous study dated 05/08/2020. The heart size is normal. Mediastinum is unremarkable. Lung persaud show diffuse increased interstitia l changes as well as some mild hazy opacity bilaterally. No pleural effusion is seen. No pneumothorax is evident. No acute bony abnormalities are seen. There is some calcific density however seen inferi or to the distal left clavicle. IMPRESSION: Diffuse increased interstitial markings and mild hazy opacity bilaterally in the lung persaud which co uld reflect some pulmonary edema. Focal calcific density inferior to the distal left clavicle. Electronically signed by: Karla Leigh MD (12/08/2021 8:11 AM) [id number]
[2021-12-08 08:19] LABS: ALBUMIN 3.2 g/dL (3.4-5.0); ALBUMIN/GLOBULIN RATIO 0.7 (1.0-1.7); CALCIUM 9.2 mg/dL (8.5-10.1); GFR 4.6; MAGNESIUM 2.7 mg/dL (1.8-2.4); TOTAL BILIRUBIN 0.4 mg/dL (0.2-1.0); TOTAL PROTEIN 7.8 g/dL (6.4-8.2)
[2021-12-08 08:21] LABS: POTASSIUM 6.2 mmol/L (3.5-5.1)
[2021-12-08 08:44] LABS: INFLUENZA A PATIENT NEGATIVE (NEGATIVE); INFLUENZA B PATIENT NEGATIVE (NEGATIVE)
[2021-12-08 10:30] VITALS: BP 151/77
--- NOTE | 2021-12-08 11:35 | HP ---
DATE OF SERVICE: 12/08/2021 ADMIT DATE: 12/08/2021 CHIEF COMPLAINT: Chest pain. HISTORY OF PRESENT ILLNESS: The patient is a pleasant 46-year-old male who is on dialysis, but he missed dialysis a couple days ago. Now, he has chest pain, short of breath, appears to be volume overloaded. I discussed the case with ER physician. We are going to admit the patient and consult Nephrology and Cardiology. PAST MEDICAL HISTORY: Noncompliance, end-stage renal disease, CHF, hypertension, CAD with multiple stents, gout. ALLERGIES: OXYCODONE. FAMILY HISTORY: Diabetes. SOCIAL HISTORY: Does not drink, smoke or take drugs. MEDICATIONS: Reviewed. Please refer to the MRAD. REVIEW OF SYSTEMS: GENERAL: No history of weight change, weakness or fevers. SKIN: No bruising, hair changes or rashes. EYES: No blurred, double or loss of vision. NOSE AND THROAT: No history of nosebleeds, hoarseness or sore throat. HEART: He complains of chest pain. LUNGS: He complains of shortness of breath. GASTROINTESTINAL: Denies changes in appetite, nausea, vomiting, diarrhea or constipation. GENITOURINARY: No history of frequency, urgency, hesitancy or nocturia. NEUROLOGIC: Denies history of numbness, tingling, tremor or weakness. PSYCHIATRIC: No history of panic, anxiety or depression. ENDOCRINE: No history of heat or cold intolerance, polyuria or polydipsia. EXTREMITIES: Denies muscle weakness, joint pain, pain on walking or stiffness. PHYSICAL EXAMINATION: VITALS: Within normal limits and are stable. GENERAL: No apparent distress. Alert and oriented. HEENT: Normal cephalic atraumatic, external auditory canals are patent. EYES: Extraocular muscles are intact, pupils are equally round and reactive to light and accommodation. MUSCULOSKELETAL: Well developed, well nourished, good range of motion. ENDOCRINE: No thyromegaly was palpated. LYMPHATICS: No cervical chain or axillary nodes were noted. HEMATOPOIETIC: No bruising. NECK: Supple, no JVD, no thyromegaly was noted. LUNGS: He has bibasilar crackles. HEART: RRR, S1, S2 present. Peripheral pulses intact, no obvious murmurs were noted. ABDOMEN: Soft, nontender. Positive bowel sounds no organomegaly, normal bowel sounds. EXTREMITIES: Without any cyanosis, clubbing, or edema. Pedal pulses intact, Homans sign is negative. NEUROLOGIC: Normal speech, normal tone. A and O x3, moves all extremities, no obvious focal deficits. PSYCHIATRIC: Normal affect, normal mood. Stable. SKIN: No ulcerations or rashes, good skin turgor, no jaundice. VASCULAR: Good capillary refill, neurovascular bundle appears to be intact. IMAGING DATA: Chest x-ray shows pulmonary edema. ASSESSMENT AND PLAN: Noncompliance with dialysis with secondary volume overload and chest pain in a middle-aged male, who has above noted comorbidities. The patient has been admitted. We will consult Nephrology, consult Cardiology. Serial enzymes, serial EKGs, cardiac monitoring and home meds. DVT prophylaxis. Full code. Rule out COVID-19. WILLOW/BRANDIN DR: WILLOW/edgra TID: [id number]
--- NOTE | 2021-12-08 13:32 | NUR ---
Admission: Patient admitted to unit from ER. Arrived via gurney. Oriented patient to room. Patient alert and oriented. Patient drowsy and fell asleep a few times while discussing admission questions. monitoring analyst applied. Vitals stable, on 4L NC. Consults called. 1335: Assisted off of unit via bed accompanied by RN and [employer] RO[employer]. Going to dialysis.
--- NOTE | 2021-12-08 14:27 | PDOC2 ---
CONSULT Date of Consult Date of Consult DATE: 12/08/21 TIME: 14:27 Reason for Consult Reason for Consult: Chest pain Referring Physician Referring Physician: Dr. Zamarripa Identification/Chief Complaint Chief Complaint Chest pain Source Source: Chart review, Patient History of Present Illness Reason for Visit: 46-year-old male with history of coronary artery disease and end-stage renal disease on hemodialysis apparently missed his hemodialysis on and started having shortness of breath and chest pain this morning. He described the chest pain as pressure-like sensation and worse with exertion. This resolved since admission but he continues to complain of shortness of breath. He denied any orthopnea/PND or palpitations. He had near syncopal episode but denied any charline loss of consciousness. He apparently had stents placed in 2019 and 2020 at [facility]. Past Medical History Cardiovascular: CAD, HTN GI: Constipation Heme/Onc: Anemia NOS Renal/: Chronic renal failure Endocrine: Hyperparathyroidism Past Surgical History Past Surgical History AV fistula placement Family History Family History Not contributory Family History: Hypertension Social History Quit ALCOHOL: none Drugs: None Lives: with Family Current Problem List Problem List Problems Medical Problems: (1) Chest pain Status: Acute (2) ESRD (end stage renal disease) on dialysis Status: Acute (3) Hyperkalemia Status: Acute (4) Hypoxia Status: Acute Current Medications Current Medications Current Medications Aspirin (Aspirin Chewable) 324 mg 1X ONCE PO Last administered on 12/08/21at 07:37; Start 12/08/21 at 07:30; Stop 12/08/21 at 07:31; Status DC Ondansetron HCl (Zofran) 4 mg 1X ONCE IVP Last administered on 12/08/21at 07:53; Start 12/08/21 at 07:45; Stop 12/08/21 at 07:46; Status DC Allopurinol (Zyloprim) 100 mg DAILY PO ; Start 12/08/21 at 15:00 Amlodipine Besylate (Norvasc) 10 mg DAILY PO ; Start 12/08/21 at 15:00 Vitamin B Complex/ Vitamin C (Rubia-Amanda) 1 tab DAILY PO ; Start 12/08/21 at 15:00 Hydralazine HCl (Apresoline) 50 mg BID PO ; Start 12/08/21 at 21:00 Sevelamer Carbonate (Renvela) 3,200 mg TIDWMEALS PO ; Start 12/08/21 at 17:00 Carvedilol (Coreg) 25 mg BIDWMEALS PO ; Start 12/08/21 at 17:00 Active Scripts Active Reported Renvela (Sevelamer Carbonate) 800 Mg Tablet 3,200 Mg PO TIDWMEALS Allopurinol 100 Mg Tablet 100 Mg PO DAILY Hydralazine Hcl 50 Mg Tablet 50 Mg PO BID Amlodipine Besylate 10 Mg Tablet 10 Mg PO DAILY Rubia-Amanda Tablet (Folic Acid/Vitamin B Comp W-C) 0.8 Mg Tablet 1 Tab PO DAILY 30 Days Carvedilol 25 Mg Tablet 25 Mg PO BIDWMEALS Allergies Allergies: Coded Allergies: oxycodone (Verified Allergy, Mild, Itching, 05/16/20) ROS PSYCHOLOGICAL ROS: No: Hallucinations Eyes: No Loss of vision HEENT: No: Epistaxis Respiratory: YES: Shortness of breath Cardiovascular: yes Chest Pain Genitourinary: No Hematuria Neurological: No Seizures Skin: No Rash Physical Exam General: Alert, Oriented X3, mild distress HEENT: Atraumatic Lungs: Other (Bilateral basal crepitations) Heart: Regular rate Abdomen: Soft Extremities: No edema Neuro: Normal speech Psych/Mental Status: Mood NL Vitals VITALS Vital Signs Date Time Temp Pulse Resp B/P (MAP) Pulse Ox O2 Delivery O2 Flow Rate FiO2 12/08/21 11:20 Nasal Cannula 4.0 12/08/21 10:30 96.2 82 17 151/77 (101) 97 96.2 Labs Labs Laboratory Tests Test 12/08/21 07:50 12/08/21 08:17 12/08/21 10:30 12/08/21 13:15 White Blood Count 7.4 x10^3/uL (4.0-11.0) Red Blood Count 3.26 x10^6/uL (4.30-5.70) Hemoglobin 9.1 g/dL (13.0-17.5) Hematocrit 29.5 % (39.0-53.0) Mean Corpuscular Volume 91 fL (79-100) Mean Corpuscular Hemoglobin 28 pg (25-35) Mean Corpuscular Hemoglobin Concent 31 g/dL (31-37) Red Cell Distribution Width 19.5 % (11.5-14.5) Platelet Count 204 x10^3/uL (140-400) Neutrophils (%) (Auto) 82 % (31-73) Lymphocytes (%) (Auto) 9 % (24-48) Monocytes (%) (Auto) 7 % (0-9) Eosinophils (%) (Auto) 1 % (0-3) Basophils (%) (Auto) 1 % (0-3) Neutrophils # (Auto) 6.0 x10^3/uL (1.8-7.7) Lymphocytes # (Auto) 0.7 x10^3/uL (1.0-4.8) Monocytes # (Auto) 0.5 x10^3/uL (0.0-1.1) Eosinophils # (Auto) 0.1 x10^3/uL (0.0-0.7) Basophils # (Auto) 0.1 x10^3/uL (0.0-0.2) Sodium Level 133 mmol/L (136-145) Potassium Level 6.2 mmol/L (3.5-5.1) Chloride Level 91 mmol/L (98-107) Carbon Dioxide Level 27 mmol/L (21-32) Anion Gap 15 (6-14) Blood Urea Nitrogen 74 mg/dL (8-26) Creatinine 14.0 mg/dL (0.7-1.3) Estimated GFR (Cockcroft-Gault) 4.6 BUN/Creatinine Ratio 5 (6-20) Glucose Level 266 mg/dL (70-99) Calcium Level 9.2 mg/dL (8.5-10.1) Phosphorus Level 8.2 mg/dL (2.6-4.7) Magnesium Level 2.7 mg/dL (1.8-2.4) Total Bilirubin 0.4 mg/dL (0.2-1.0) Aspartate Amino Transf (AST/SGOT) 20 U/L (15-37) Alanine Aminotransferase (ALT/SGPT) 17 U/L (16-63) Alkaline Phosphatase 220 U/L (46-116) Troponin I High Sensitivity 62 ng/L (4-75) 64 ng/L (4-75) 62 ng/L (4-75) Total Protein 7.8 g/dL (6.4-8.2) Albumin 3.2 g/dL (3.4-5.0) Albumin/Globulin Ratio 0.7 (1.0-1.7) Influenza Type A Antigen Negative (NEGATIVE) Influenza Type B Antigen Negative (NEGATIVE) SARS-CoV-2 Antigen (Rapid) Negative (NEGATIVE) Laboratory Tests Test 12/08/21 07:50 12/08/21 08:17 12/08/21 10:30 12/08/21 13:15 White Blood Count 7.4 x10^3/uL (4.0-11.0) Red Blood Count 3.26 x10^6/uL (4.30-5.70) Hemoglobin 9.1 g/dL (13.0-17.5) Hematocrit 29.5 % (39.0-53.0) Mean Corpuscular Volume 91 fL (79-100) Mean Corpuscular Hemoglobin 28 pg (25-35) Mean Corpuscular Hemoglobin Concent 31 g/dL (31-37) Red Cell Distribution Width 19.5 % (11.5-14.5) Platelet Count 204 x10^3/uL (140-400) Neutrophils (%) (Auto) 82 % (31-73) Lymphocytes (%) (Auto) 9 % (24-48) Monocytes (%) (Auto) 7 % (0-9) Eosinophils (%) (Auto) 1 % (0-3) Basophils (%) (Auto) 1 % (0-3) Neutrophils # (Auto) 6.0 x10^3/uL (1.8-7.7) Lymphocytes # (Auto) 0.7 x10^3/uL (1.0-4.8) Monocytes # (Auto) 0.5 x10^3/uL (0.0-1.1) Eosinophils # (Auto) 0.1 x10^3/uL (0.0-0.7) Basophils # (Auto) 0.1 x10^3/uL (0.0-0.2) Sodium Level 133 mmol/L (136-145) Potassium Level 6.2 mmol/L (3.5-5.1) Chloride Level 91 mmol/L (98-107) Carbon Dioxide Level 27 mmol/L (21-32) Anion Gap 15 (6-14) Blood Urea Nitrogen 74 mg/dL (8-26) Creatinine 14.0 mg/dL (0.7-1.3) Estimated GFR (Cockcroft-Gault) 4.6 BUN/Creatinine Ratio 5 (6-20) Glucose Level 266 mg/dL (70-99) Calcium Level 9.2 mg/dL (8.5-10.1) Phosphorus Level 8.2 mg/dL (2.6-4.7) Magnesium Level 2.7 mg/dL (1.8-2.4) Total Bilirubin 0.4 mg/dL (0.2-1.0) Aspartate Amino Transf (AST/SGOT) 20 U/L (15-37) Alanine Aminotransferase (ALT/SGPT) 17 U/L (16-63) Alkaline Phosphatase 220 U/L (46-116) Troponin I High Sensitivity 62 ng/L (4-75) 64 ng/L (4-75) 62 ng/L (4-75) Total Protein 7.8 g/dL (6.4-8.2) Albumin 3.2 g/dL (3.4-5.0) Albumin/Globulin Ratio 0.7 (1.0-1.7) Influenza Type A Antigen Negative (NEGATIVE) Influenza Type B Antigen Negative (NEGATIVE) SARS-CoV-2 Antigen (Rapid) Negative (NEGATIVE) Assessment/Plan Assessment/Plan 1. Acute hypoxic respiratory failure most probably secondary to acute on chronic diastolic heart failure from missed hemodialysis. Continue fluid removal per nephrology team. 2. Coronary artery disease s/p multiple PCI/stents placement in the past presently complaining of chest pain with typical features. Myocardial infarction has been ruled out based on cardiac enzymes. We will consider i schemic evaluation once better compensated. Continue current secondary prevention measures. 3. Hypertension: Controlled 4. End-stage renal disease, hyperkalemia: Nephrology consulted Thank you for your consultation JOSE GOMEZ MD Dec 08, 2021 14:27
[2021-12-08] MEDS: ALLOPURINOL 100 MG TABLET. PO SCH (15:00)
--- NOTE | 2021-12-08 15:30 | EKG ---
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
[2021-12-08] MEDS: FOLIC/VIT B COMP W-C (RENAL) TABLET. PO SCH (17:31)
[2021-12-08] MEDS: CARVEDILOL 12.5 MG TABLET. PO SCH (17:31)
[2021-12-08] MEDS: SEVELAMER CARBONATE 800 MG TABLET. PO SCH (17:33)
[2021-12-08 18:19] VITALS: BP 179/84
[2021-12-08] MEDS ORDERED: DIALYSIS PATIENT. MC PRN ×2 (19:00)
[2021-12-08] MEDS ORDERED: IV NORMAL SALINE 1000ML BAG 1,000 ML IV PRN (19:00)
[2021-12-08 19:54] VITALS: BP 165/91
[2021-12-08 22:47] VITALS: BP 136/75
[2021-12-09 02:26] VITALS: BP 136/76
--- NOTE | 2021-12-09 04:57 | CONS ---
DATE OF CONSULTATION: 12/08/2021 NEPHROLOGY CONSULTATION REQUESTING PHYSICIAN: Hospitalist. REASON FOR CONSULTATION: Renal failure. HISTORY OF PRESENT ILLNESS: This is a 46-year-old gentleman with history of end-stage renal disease in the setting of hypertension and nephrosclerosis. The patient presents having missed his dialysis treatment. He is now complaining of chest pain and increasing shortness of breath. In this setting, Nephrology evaluation requested. PAST MEDICAL HISTORY: Hypertension; end-stage renal disease, hemodialysis dependent; anemia of chronic kidney disease; secondary hyperparathyroidism; renal disease; coronary artery disease, status post multiple stenting; gout; congestive cardiomyopathy. ALLERGIES: OXYCODONE. MEDICATIONS: Reviewed per medication list. FAMILY HISTORY: Noncontributory for renal disease. There is history of diabetes mellitus. SOCIAL HISTORY: The patient resides independently. Does not drink or smoke tobacco or use tobacco products. REVIEW OF SYSTEMS: Other than chest pain and shortness of breath and easy fatigability, remainder of review of systems is unremarkable. PHYSICAL EXAMINATION: APPEARANCE: The patient is PUI for COVID-19 and as such, bedside examination not pursued. He is noted; however, to have shortness of breath. LABORATORY DATA: White count 7.4, hemoglobin 9.1, hematocrit 21.5, and platelets are 204. Sodium 133, potassium 6.2, chloride 91, CO2 of 27, BUN 74, and creatinine 14. GFR is 4.6. IMPRESSION: 1. End-stage renal disease secondary to hypertensive nephrosclerosis and diabetes mellitus. 2. Hyperkalemia due to end-stage renal disease and missed dialysis. 3. Pulmonary edema secondary to end-stage renal disease and missed dialysis. RECOMMENDATIONS: Proceed with dialysis today. We will then continue on a Friday, Friday, Friday schedule. PRINCE/PHILL/MIKE DR: PRINCE/edgar TID: [id number]
[2021-12-09 07:00] VITALS: BP 149/82
[2021-12-09] MEDS: SEVELAMER CARBONATE 800 MG TABLET. PO SCH ×2 (08:00→10:44)
[2021-12-09] MEDS: FOLIC/VIT B COMP W-C (RENAL) TABLET. PO SCH (08:46)
[2021-12-09] MEDS: CARVEDILOL 12.5 MG TABLET. PO SCH (08:46)
[2021-12-09] MEDS: ALLOPURINOL 100 MG TABLET. PO SCH (08:46)
[2021-12-09 10:47] VITALS: BP 147/83
--- NOTE | 2021-12-09 11:53 | PDOC ---
[employer] PROGRESS NOTE Date of Service DOS: DATE: 12/09/21 TIME: 11:34 Chief Complaint Chief Complaint Acute hypoxic respiratory failure CAD status post multiple stents presenting with atypical chest pain History of hypertension Hyperkalemia ESRD on HD MWF Plan for dialysis session tomorrow Attempt to titrate O2 down to 0 until patient is on room air. Patient is not on any home oxygen. History of Present Illness History of Present Illness 46-year-old male who is on dialysis, but he missed dialysis a couple days ago. Now, he has chest pain, short of breath, appears to be volume overloaded. We are going to admit the patient and consult Nephrology and Cardiology. 12/09/2021 No acute events overnight. Patient seen examined bedside. Feels better after dialysis. AF and slightly hypertensive with systolic blood pressures in the 140s. Still requiring oxygen of 3 L nasal cannula saturating 97%. Will likely need to do one more dialysis session tomorrow before discharge. Patient is ready to go home and wants to go home today. Patient's chart, labs, images were reviewed and discussed with RN Vitals/I&O Vitals/I&O: Vital Signs Date Time Temp Pulse Resp B/P (MAP) Pulse Ox O2 Delivery O2 Flow Rate FiO2 12/09/21 10:47 97.8 92 20 147/83 (104) 97 Nasal Cannula 3.0 97.8 I & O 12/08/21 12/08/21 12/09/21 15:00 23:00 07:00 Intake Total 520 ml 0 ml Output Total 400 ml Balance 120 ml 0 ml Physical Exam General: Alert, Oriented X3, mild distress Heart: Regular rate Abdomen: Soft Extremities: No edema Labs Labs: Laboratory Tests Test 12/08/21 13:15 Troponin I High Sensitivity 62 ng/L (4-75) Assessment and Plan Assessmemt and Plan Problems Medical Problems: (1) Chest pain Status: Acute (2) ESRD (end stage renal disease) on dialysis Status: Acute (3) Hyperkalemia Status: Acute (4) Hypoxia Status: Acute Comment Review of Relevant I have reviewed the following items dustin (where applicable) has been applied. Medications: Current Medications Medications (Trade) Dose Ordered Sig/Nawaf Route PRN Reason Start Time Stop Time Status Last Admin Dose Admin Allopurinol (Zyloprim) 100 mg DAILY PO 12/08/21 15:00 12/09/21 08:46 Amlodipine Besylate (Norvasc) 10 mg DAILY PO 12/08/21 15:00 12/09/21 08:46 Vitamin B Complex/ Vitamin C (Rubia-Amanda) 1 tab DAILY PO 12/08/21 15:00 12/09/21 08:46 Hydralazine HCl (Apresoline) 50 mg BID PO 12/08/21 21:00 12/09/21 08:46 Sevelamer Carbonate (Renvela) 3,200 mg TIDWMEALS PO 12/08/21 17:00 12/09/21 10:44 Carvedilol (Coreg) 25 mg BIDWMEALS PO 12/08/21 17:00 12/09/21 08:46 Justifications for Admission Other Justification HERLINDA GARAY MD Dec 09, 2021 11:53
--- NOTE | 2021-12-09 12:43 | PDOC ---
PROGRESS NOTES Date of Service: DATE: 12/09/21 TIME: 12:40 Subjective Subjective Dyspnea improved. Denied any further episodes of chest pain. Objective Objective Vital Signs Date Time Temp Pulse Resp B/P (MAP) Pulse Ox O2 Delivery O2 Flow Rate FiO2 12/09/21 10:47 97.8 92 20 147/83 (104) 97 Nasal Cannula 3.0 97.8 Intake and Output 12/09/21 07:00 Intake Total 520 ml Output Total 400 ml Balance 120 ml Intake Oral 520 ml Output Urine Total 400 ml Physical Exam Abdomen: Soft Heart: Regular rate, Other (ESM aortic) Extremities: No edema General: Alert, Oriented X3, mild distress HEENT: Atraumatic Lungs: Other (Bilateral basal crepitations) MUSCULOSKELETAL: No joint tenderness, No deformity, No swelling Neuro: Normal speech Psych/Mental Status: Mood NL Assessment Assessment 1. Acute hypoxic respiratory failure most probably secondary to acute on chronic diastolic heart failure from missed hemodialysis. Improved after fluid removal with hemodialysis. 2. Coronary artery disease s/p multiple PCI/stents placement in the past presently complaining of chest pain with typical features. Myocardial infarction has been ruled out based on cardiac enzymes. Records from [facility] reviewed. Patient had PCI/ELIOT to LCx in the past and more recent PCI/ELIOT to in-stent restenosis involving LCx in January 2021. 2D echo at that time showed normal LV systolic function with EF 50 to 55%. Continue current secondary prevention measures and consider ischemic evaluation as an outpatient with primary reference assistant. 3. Hypertension: Controlled 4. End-stage renal disease, hyperkalemia: Nephrology following. 5. Moderate aortic stenosis, noted on last 2D echo 6. Paroxysmal atrial fibrillation: Presently in sinus rhythm. Patient stated that he was taking amiodarone at home -resume this prior to discharge Plan Plan of Care Problems Medical Problems: (1) Chest pain Status: Acute (2) ESRD (end stage renal disease) on dialysis Status: Acute (3) Hyperkalemia Status: Acute (4) Hypoxia Status: Acute Comment Review of Relevant I have reviewed the following items dustin (where applicable) has been applied. Labs Laboratory Tests Test 12/08/21 13:15 Troponin I High Sensitivity 62 ng/L (4-75) Medications Current Medications Allopurinol (Zyloprim) 100 mg DAILY PO Last administered on 12/09/21at 08:46; Start 12/08/21 at 15:00 Amlodipine Besylate (Norvasc) 10 mg DAILY PO Last administered on 12/09/21at 08:46; Start 12/08/21 at 15:00 Carvedilol (Coreg) 25 mg BIDWMEALS PO Last administered on 12/09/21at 08:46; Start 12/08/21 at 17:00 Hydralazine HCl (Apresoline) 50 mg BID PO Last administered on 12/09/21at 08:46; Start 12/08/21 at 21:00 Info (PHARMACY MONITORING -- do not chart) 1 each PRN DAILY PRN MC SEE COMMENTS; Start 12/08/21 at 19:00 Info (PHARMACY MONITORING -- do not chart) 1 each PRN DAILY PRN MC SEE COMMENTS; Start 12/08/21 at 19:00; Status UNV Sevelamer Carbonate (Renvela) 3,200 mg TIDWMEALS PO Last administered on 12/09/21at 10:44; Start 12/08/21 at 17:00 Sodium Chloride 1,000 ml @ 1,000 mls/hr Q1H PRN IV hypotension; Start 12/08/21 at 19:00; Stop 12/09/21 at 00:59; Status DC Vitamin B Complex/ Vitamin C (Rubia-Amanda) 1 tab DAILY PO Last administered on 12/09/21at 08:46; Start 12/08/21 at 15:00 Vitals/I & O Vital Sign - Last 24 Hours 12/08/21 12/08/21 12/08/21 12/08/21 17:31 17:32 18:19 19:54 Temp 98.7 98.7 Pulse 80 80 80 89 Resp 16 B/P (MAP) 179/84 (115) 165/91 (115) Pulse Ox 98 O2 Delivery Nasal Cannula O2 Flow Rate 5.0 12/08/21 12/08/21 12/08/21 12/09/21 20:00 20:03 22:47 02:26 Temp 98.7 99.3 98.7 99.3 Pulse 89 90 93 Resp 16 16 B/P (MAP) 165/91 136/75 (95) 136/76 (96) Pulse Ox 99 97 O2 Delivery Nasal Cannula Nasal Cannula Nasal Cannula O2 Flow Rate 5.0 5.0 5.0 12/09/21 12/09/21 12/09/21 12/09/21 07:00 08:00 08:46 08:46 Temp 99.2 99.2 Pulse 89 89 89 Resp 20 B/P (MAP) 149/82 (104) 149/82 149/82 Pulse Ox 97 O2 Delivery Nasal Cannula Nasal Cannula O2 Flow Rate 5.0 6.0 12/09/21 12/09/21 08:46 10:47 Temp 97.8 97.8 Pulse 89 92 Resp 20 B/P (MAP) 149/82 147/83 (104) Pulse Ox 97 O2 Delivery Nasal Cannula O2 Flow Rate 3.0 Intake and Output 12/08/21 12/08/21 12/09/21 15:00 23:00 07:00 Intake Total 520 ml 0 ml Output Total 400 ml Balance 120 ml 0 ml JOSE GOMEZ MD Dec 09, 2021 12:43
[2021-12-09] MEDS ORDERED: ASPIRIN ENTERIC COATED 81 MG TABLET.DR. PO SCH (13:00)
[2021-12-09] MEDS ORDERED: TICAGRELOR 90 MG TABLET. PO SCH (13:00)
[2021-12-09] MEDS ORDERED: AMIODARONE HCL 200 MG TABLET. PO SCH (13:00)
[2021-12-09 15:02] VITALS: BP 162/81
[2021-12-09] MEDS ORDERED: ASPI-886 PO (15:30)
[2021-12-09] MEDS ORDERED: AMIO200T53 PO (15:30)
[2021-12-09] MEDS ORDERED: TICA90TA PO (15:30)
--- NOTE | 2021-12-09 15:32 | DISCH ---
DISCHARGE INSTRUCTIONS Condition on Discharge Condition on Discharge: Stable Activity After Discharge Activity Instructions for Disc: Activity as tolerated Exercise Instruction after Dis: Walk 30 min, 5 x per week Driving Instructions after Dis: Do not drive today Weight Bearing Status after Di: Full weight bearing Diet after Discharge Diet after Discharge: Renal Dialysis Diet Texture: Regular Checks after Discharge Checks after discharge: Check blood press - daily Contacting the DRLupe after DC Call your doctor for: If your condition worsens Follow-Up Follow up with: PCP within 2 weeks of discharge Follow Up With: Nephrology for HD MWF Treatment/Equipment after DC Adaptive Equipment Issued: None HERLINDA GARAY MD Dec 09, 2021 15:32
--- NOTE | 2021-12-09 17:04 | NUR ---
Pt given discharge orders and instructions for follow up. Pt taken by wheelchair to ER entrance where his ride was waiting.
== END 2021-12-09 16:40 | disposition home or self-care (01) ==
LOC: ER 07:13 → 6 SOUTH 08:35
PROVIDERS: ADMIT Internal Medicine; ATTEND Internal Medicine
DX: J96.01 Acute respiratory failure with hypoxia (principal); Z20.822 Contact with and (suspected) exposure to COVID-19; E87.70 Fluid overload, unspecified; R07.89 Other chest pain; I13.2 Hypertensive heart and chronic kidney disease with heart failure and with stage 5 chronic kidney disease, or end stage renal disease; I50.33 Acute on chronic diastolic (congestive) heart failure; N18.6 End stage renal disease; D63.1 Anemia in chronic kidney disease; E11.22 Type 2 diabetes mellitus with diabetic chronic kidney disease; I25.10 Atherosclerotic heart disease of native coronary artery without angina pectoris; I35.0 Nonrheumatic aortic (valve) stenosis; I48.0 Paroxysmal atrial fibrillation; I42.0 Dilated cardiomyopathy; J81.1 Chronic pulmonary edema; N25.81 Secondary hyperparathyroidism of renal origin; M10.9 Gout, unspecified; K59.00 Constipation, unspecified; E87.5 Hyperkalemia; Z87.891 Personal history of nicotine dependence; Z91.15 Patient's noncompliance with renal dialysis; Z91.19 Patient's noncompliance with other medical treatment and regimen; Z95.5 Presence of coronary angioplasty implant and graft; Z99.2 Dependence on renal dialysis; Z95.1 Presence of aortocoronary bypass graft; Z79.82 Long term (current) use of aspirin
CPT/HCPCS: 36415; 71045; 80053; 83735; 84100; 84484; 85025; 87428; 93005; 94618; 96374; 99285; G0378; J2405; U0003; G0379